=== PATIENT | male | born 1995 | race African-American/Black ===

== ENCOUNTER 2021-04-27 14:02 | Emergency (ER) | payer OTHER ==
[2021-04-27] MEDS ORDERED: Fluorescein Opthalmic Strip ONE (14:12)
[2021-04-27] MEDS ORDERED: Tetracaine 0.5% PF 4 ML BOT ONE (14:13)
== END 2021-04-27 15:22 | disposition home or self-care (01) ==
LOC: MADERS 14:02
DX: H57.89 Other specified disorders of eye and adnexa (principal); Z79.899 Other long term (current) drug therapy
CPT/HCPCS: 99283

== ENCOUNTER 2024-12-12 09:27 | Emergency (ER) | payer BC ==
[~2024-12-12 09:27] MED LIST: Iopamidol 370 76% 100 ML VIAL ONE
[2024-12-12] MEDS ORDERED: Ondansetron PF 4 MG/2 ML Vial ONE ×2 (10:00→11:58)
[2024-12-12 10:21] LABS: #Basophils 0.0 thou/uL (0.0-0.2); #Eosinophils 0.1 thou/uL (0.0-0.7); #Lymphocytes 1.2 thou/uL (1.20-3.40); #Monocytes 0.6 thou/uL (0.11-0.59); #Neutrophils 5.6 thou/uL (1.40-6.50); %Basophils 0.5 % (0.0-1.0); %Eosinophils 0.9 % (0.0-10.0); %Lymphocytes 16.1 % (21.0-51.0); %Monocytes 8.4 % (0.0-10.0); %Neutrophils 74.1 % (42.0-75.0); Hematocrit 51.8 % (42.0-52.0); Hemoglobin 15.8 g/dL (14.0-18.0); Mean Corpuscular Hemoglobin 25.2 pg (27.0-31.0); Mean Corpuscular Volume 82.5 fl (78.0-98.0); Platelet Count 296 10x3/uL (130-400); Red Blood Cell (RBC) Count 6.28 mill/uL (4.70-6.10); White Blood Cell (WBC) Count 7.5 10x3/uL (4.8-10.8)
[2024-12-12 10:38] LABS: ALT (SGPT) 27 U/L (Less than 45); AST (SGOT) 23 U/L (11-34); Albumin 4.8 g/dL (3.1-4.5); Alkaline Phosphatase 73 U/L (40-110); Anion Gap 18 mmol/L (10-20); BUN (Urea Nitrogen) 7 mg/dL (8.9-20.6); Bilirubin, Total 0.5 mg/dL (0.3-1.2); Calc. Creatinine Clearance 0 mL/min (70-130); Calcium 10.1 mg/dL (7.8-10.44); Carbon Dioxide 23 mmol/L (22-29); Chloride 104 mmol/L (98-107); Globulin 3.3 g/dL (2.4-3.5); Glucose 121 mg/dL (70-105); Lipase 22 U/L (8-78); Magnesium 1.9 mg/dL (1.6-2.6); Potassium 3.6 mmol/L (3.5-5.1); Sodium 141 mmol/L (136-145)
[2024-12-12 10:40] LABS: Troponin I Less than 0.010 ng/mL (< 0.028)
== END 2024-12-12 13:13 | disposition home or self-care (01) ==
LOC: MADERS 09:27
DX: B34.9 Viral infection, unspecified (principal); F17.220 Nicotine dependence, chewing tobacco, uncomplicated
CPT/HCPCS: 71045; 71260; 74177; 80053; 83605; 83690; 83735; 84484; 85025; 87040; 87081; 87400; 87426; 87430; 93005; 94760; 96361; 96374; 96376; J2405; J7030; Q9967